=== PATIENT | male | born 1945 ===

== ENCOUNTER 2024-09-28 11:15 | Inpatient (IN) | payer OTHER ==
[~2024-09-28] VITALS: Ht 167.6 cm; Wt 68.0 kg
[2024-09-28] MEDS ORDERED: LOSARTAN POTASS25 MG PO (13:22)
[2024-09-28] MEDS ORDERED: ZOLOFT25 MG PO (13:23)
[2024-09-28] MEDS ORDERED: TAMS0.4C PO (13:23)
[2024-09-28] MEDS ORDERED: ISOSORBIDE DINI30 MG PO (13:23)
[2024-09-28] MEDS ORDERED: HORIZANT300 MG PO (13:23)
[2024-09-28] MEDS ORDERED: LIPITOR40 MG PO (13:24)
[2024-09-28] MEDS ORDERED: PRILOSEC OTC20 MG PO (13:24)
[2024-09-28 13:25] VITALS: BP 170/100
[2024-10-02] MEDS ORDERED: CEFTRIAXONE SODIUM 2,000 MG VIAL ONE (07:38)
[2024-10-02] MEDS ORDERED: METRONIDAZOLE/SODIUM CHLORIDE 500 MG/100 ML PIGGYBACK IV ONE ×2 (07:39→09:00)
[2024-10-02] MEDS ORDERED: BUPIVACAINE HCL/MPF 0.5% 30ML VIAL ONE (08:26)
[2024-10-02] MEDS ORDERED: LIDOCAINE HCL 1%/EPINEPHRINE 20ML VIAL IJ ONE ×2 (08:27→09:00)
[2024-10-02] MEDS ORDERED: DIBUCAINE 30 GM TUBE ONE (08:33)
[2024-10-02] MEDS ORDERED: HEMOSTATIC MATRIX 1 KIT KIT TOP ONE ×2 (08:33→09:00)
[2024-10-02] MEDS ORDERED: POVIDONE-IODINE 118 ML BOTT TOP ONE ×2 (08:33→09:00)
[2024-10-02] MEDS ORDERED: OMEPRAZOLE20 MG (08:59)
[2024-10-02] MEDS ORDERED: GABAPENTIN400 MG (08:59)
[2024-10-02] MEDS ORDERED: SERTRALINE HCL50 MG (08:59)
[2024-10-02] MEDS ORDERED: PANTOPRAZOLE SO40 MG (08:59)
[2024-10-02] MEDS ORDERED: OXYBUTYNIN CHLOR5 MG (08:59)
[2024-10-02] MEDS ORDERED: FLUOROMETHOLONE5 ML (08:59)
[2024-10-02] MEDS ORDERED: ISOSORBIDE MONO30 M2 (08:59)
[2024-10-02] MEDS ORDERED: ST. JOSEPH ASPI81 M2 (08:59)
[2024-10-02] MEDS ORDERED: DIBUCAINE 30 GM TUBE RECTAL ONE (09:00)
[2024-10-02] MEDS ORDERED: CEFTRIAXONE SODIUM 2,000 MG VIAL IV ONE (09:00)
[2024-10-02] MEDS ORDERED: BUPIVACAINE HCL 30 ML VIAL IJ ONE (09:00)
[2024-10-02] MEDS ORDERED: OxyCODONE HCL 5 MG TABLET (ROXICODONE) PO PRN (10:30)
[2024-10-02] MEDS ORDERED: RINGERS SOLUTION,LACTATED 1,000 ML IV SCH (10:30)
[2024-10-02] MEDS ORDERED: ONDANSETRON HCL 2 MG/ML VIAL IV PRN (10:30)
[2024-10-02] MEDS ORDERED: DEXTROSE 50 % IN WATER 0.5 G/ML VIAL IV PRN (10:30)
[2024-10-02 12:09] LABS: BASO % 0.5 % (0.1-1.2); EOS # 0.14 (0.04-0.54); EOS % 1.5 % (0.7-7.0); LYMPH # 1.14 (1.18-3.74); LYMPH % 12.4 % (19.3-53.1); MEAN PLATELET VOLUME 10.60 fl (9.4-12.4); MONO # 0.55 (0.24-0.82); MONO % 6.0 % (4.7-12.5); NEUT # 7.18 (1.56-6.13); NEUT % 77.9 % (34.0-71.1); RED CELL DISTRIBUTION WIDTH 14.7 % (11.6-14.4)
[2024-10-02 13:01] LABS: BUN CREA RATIO 19.0 (7.0-25.0); CREATININE SERUM 1.01 mg/dL (0.70-1.30); GFR 71.26; GLUCOSE FASTING 100.0 mg/dL (65-100); OSMOLALITY SERUM 282.0 MOSM/KG (275-295)
[2024-10-02 13:36] VITALS: BP 143/82; O2SAT 95
[2024-10-02] MEDS ORDERED: ACETAMINOPHEN 500 MG GEL..CAP PO SCH (14:00)
[2024-10-02] MEDS ORDERED: ENALAPRILAT DIHYDRATE 1.25 MG/ML VIAL IV ONE (16:11)
[2024-10-02 16:21] VITALS: BP 162/98; O2SAT 95
[2024-10-02] MEDS ORDERED: ENALAPRILAT DIHYDRATE 1.25 MG/ML VIAL IV PRN (16:30)
[2024-10-02] MEDS ORDERED: POLYETHYLENE GLYCOL 3350 17 GM BLIST.PACK PO SCH (17:00)
[2024-10-02] MEDS ORDERED: GABAPENTIN 300 MG CAPSULE PO SCH (17:00)
[2024-10-02] MEDS ORDERED: FAMOTIDINE/PF 20 MG/2 ML VIAL IV PUSH SCH (21:00)
[2024-10-03 01:02] VITALS: BP 120/72; O2SAT 96
[2024-10-03 07:27] LABS: BASO % 0.4 % (0.1-1.2); EOS # 0.17 (0.04-0.54); EOS % 1.7 % (0.7-7.0); LYMPH # 1.53 (1.18-3.74); LYMPH % 15.2 % (19.3-53.1); MEAN PLATELET VOLUME 11.00 fl (9.4-12.4); MONO # 1.07 (0.24-0.82); MONO % 10.6 % (4.7-12.5); NEUT # 7.20 (1.56-6.13); NEUT % 71.6 % (34.0-71.1); RED CELL DISTRIBUTION WIDTH 14.8 % (11.6-14.4)
[2024-10-03 07:51] LABS: BUN CREA RATIO 15.0 (7.0-25.0); CREATININE SERUM 0.98 mg/dL (0.70-1.30); GFR 73.78; GLUCOSE FASTING 76.0 mg/dL (65-100); OSMOLALITY SERUM 285.0 MOSM/KG (275-295)
[2024-10-03] MEDS ORDERED: ISOSORBIDE DINITRATE 30 MG TABLET PO SCH (09:00)
[2024-10-03] MEDS ORDERED: TAMSULOSIN HCL 0.4 MG CAP PO SCH (09:00)
[2024-10-03] MEDS ORDERED: LOSARTAN POTASSIUM 25 MG TABLET PO SCH (09:00)
[2024-10-03] MEDS ORDERED: TYLENOL ARTHRI650 MG PO (09:44)
== END 2024-10-03 11:55 | disposition home or self-care (01) | DRG 348 ==
LOC: SURH 10-02 08:18 → O/R 10-02 08:18 → SURH 10-02 11:15
PROVIDERS: ADMIT Surgery; ATTEND Surgery
PROC: 0DBQ7ZZ Excision of Anus, Via Natural or Artificial Opening (ICD-10-PCS; principal; 2024-10-02 14:30)
DX: D12.8 Benign neoplasm of rectum (principal); K62.5 Hemorrhage of anus and rectum; D37.5 Neoplasm of uncertain behavior of rectum; K62.82 Dysplasia of anus